=== PATIENT | female | born 2000 | race African-American/Black ===

== ENCOUNTER 2023-12-23 21:23 | Emergency (ER) | payer BC ==
[~2023-12-23] VITALS: Ht 170.2 cm; Wt 122.7 kg
[2023-12-23] MEDS ORDERED: AlOH3/diphen/Lidoc/MgOH2/Simet Oral Susp 10 ML UD Syringe PO ONE (21:45)
[2023-12-23] MEDS ORDERED: Acetaminophen 325 MG TAB PO ONE (21:45)
[2023-12-23] MEDS ORDERED: Ibuprofen 400 MG TAB PO ONE (21:45)
== END 2023-12-23 23:19 | disposition home or self-care (01) ==
LOC: COL.ER 21:23
DX: J02.8 Acute pharyngitis due to other specified organisms (principal); F17.290 Nicotine dependence, other tobacco product, uncomplicated